=== PATIENT | female | born 1970 | race Caucasian/White ===

== ENCOUNTER 2016-12-19 12:19 | Emergency (ER) | payer OTHER ==
[~2016-12-19] VITALS: Ht 170.2 cm; Wt 100.0 kg
[~2016-12-19 12:19] MED LIST: /AUGM875TA OR; ACET65TA OR; CIPR500T4 OR; COLA100C2 OR; FLAG500T OR; MAALSUS OR; NEXI20CA OR; VICO5TAB OR
[2016-12-19 15:05] VITALS: BP 135/84
== END 2016-12-19 15:06 | disposition home or self-care (01) ==
LOC: M ED 12:19
DX: N63.20 Unspecified lump in the left breast, unspecified quadrant (principal)

== ENCOUNTER → 2017-06-22 | Outpatient (CLI) | payer OTHER | LOC: M LRY 19:20 | DX: M25.531 Pain in right wrist (principal); M79.641 Pain in right hand | CPT/HCPCS: 73110 ==